=== PATIENT | female | born 1990 | race Caucasian/White ===

== ENCOUNTER 2016-06-27 12:57 | Emergency (ER) | payer OTHER ==
--- NOTE | ~2016-06-27 | CR126 ---
[facility]. [facility] A Service of [facility] & [facility] RADIOLOGY TEXT RESULTS PATIENT: JAZZY JIMENEZ LOCATION: SED : [birth year] UNIT #: [id number] AGE: [address]: Maura Flores APRN SEX: F ORDER DR: [id number] [address] [address] [id number] E MR#: [id number] Acc #: [id number] NAME: JAZZY JIMENEZ : 1990 SEX: F STUDY DATE/TIME: 06/27/2016 12:57 UNIT: SED ROOM: STUDY DESCRIPTION: CR Foot Complete Min 3 View Lt Attending Physician: Maura Flores A.P.R.N. Ordering Physician: Maura Flores A.P.R.N. Primary Care Physician: Ish Go M.D. MEDICAL IMAGING REPORT This report is preliminary unless electronic signature is present. EXAM Left foot, 3 views, 06/27/2016, 1257 hours. CLINICAL HISTORY Foot and ankle pain following a twisting injury 2 night ago. COMPARISON None. FINDINGS AP, lateral, and oblique views demonstrate overall normal bone density. There is no fracture or dislocation. IMPRESSION Negative left foot. No fracture seen. Dictated by... Judie Murray M.D. THIS IS AN ELECTRONICALLY VERIFIED REPORT Judie Murray M.D. at 06/28/2016 9:27 AM LAYNE/aissatou TD: 06/27/2016 15:09 JOB #: [id number] MEDICAL IMAGING REPORT Page 1 of 1
--- NOTE | ~2016-06-27 | CR20 ---
[facility] A Service of [facility] RADIOLOGY TEXT RESULTS PATIENT: JAZZY JIMENEZ LOCATION: SED : [birth year] UNIT #: [id number] AGE: [address]: Maura Flores APRN SEX: F ORDER DR: [id number] [address] [address] [id number] E MR#: [id number] Acc #: [id number] NAME: JAZZY JIMENEZ : 1990 SEX: F STUDY DATE/TIME: 06/27/2016 12:27 UNIT: SED ROOM: STUDY DESCRIPTION: CR Ankle Min 3 Views Lt Attending Physician: Maura Flores A.P.R.N. Ordering Physician: Maura Flores A.P.R.N. Primary Care Physician: Ish Go M.D. MEDICAL IMAGING REPORT This report is preliminary unless electronic signature is present. EXAM Left ankle 3 views 06/27/2016 1227 hours HISTORY 25-year-old who suffered twisting injury 2 nights ago, ankle pain. COMPARISON None. FINDINGS AP, lateral and oblique views are performed. There is no acute ankle fracture or dislocation. Question is raised of subarticular lucency at the medial talar dome difficult to assess on these projections. Presence of avascular necrosis at the talar dome cannot be excluded. Correlate with patient's pain. Consider further evaluation with ankle MRI. IMPRESSION There is no definite acute fracture or dislocation. Question is raised of subarticular lucency at the medial talar dome which could indicate underlying osteonecrosis. Correlate with patient's symptoms and consider further evaluation with ankle MRI to exclude avascular necrosis. Dictated by... Judie Murray M.D. THIS IS AN ELECTRONICALLY VERIFIED REPORT Judie Murray M.D. at 06/28/2016 9:27 AM LAYNE/anais TD: 06/27/2016 15:21 JOB #: [id number] [facility] A Service of [facility] RADIOLOGY TEXT RESULTS PATIENT: JAZZY JIMENEZ LOCATION: [facility] : [birth year] UNIT #: [id number] AGE: [address]: Maura Flores APRN SEX: F ORDER DR: MEDICAL IMAGING REPORT Page 1 of 1
[~2016-06-27 12:57] MED LIST: BENZONATATE PO; BIRTH CONTROL PO; CLEOCIN HCL300 M1 PO; DICLOFENAC PO; FLONASE16 GM; MACROBID100 MG DOB; NO MEDICATIONS; TYLENOL #3 PO; VOLTAREN50 MG PO; VOLTAREN75 MG PO; ZOFRANODT PO
== END 2016-06-27 14:46 | disposition home or self-care (01) ==
LOC: SED 12:57
DX: S93.422A Sprain of deltoid ligament of left ankle, initial encounter (principal); F17.200 Nicotine dependence, unspecified, uncomplicated; Z88.1 Allergy status to other antibiotic agents; Z88.2 Allergy status to sulfonamides; X50.1XXA Overexertion from prolonged static or awkward postures, initial encounter; Y93.41 Activity, dancing
CPT/HCPCS: 73610; 73630; 99283